=== PATIENT | female | born 2000 | race Caucasian/White ===

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

== ENCOUNTER → 2019-10-21 | Outpatient (REF) | payer BC, OTHER ==
[2019-10-21 12:58] LABS: HEMATOCRIT 34.9 % (36.0-47.0); HEMOGLOBIN 11.7 g/dl (12.0-15.5); MEAN CORPUSCULAR HEMOGLOBIN 29.3 pg (27.0-33.0); MEAN CORPUSCULAR HGB CONC 33.5 g/dl (32.0-36.5); MEAN CORPUSCULAR VOLUME 87.5 fl (80.0-96.0); PLATELET COUNT, AUTOMATED 277 10^3/uL (150-450); RED BLOOD COUNT 3.99 10^6/uL (4.00-5.40); WHITE BLOOD COUNT 8.8 10^3/uL (4.0-10.0)
[2019-10-21 13:20] LABS: HCG, SERUM QUANTITATIVE 50801 MIU/ML
[2019-10-21 13:23] LABS: RUBELLA IgG QUALITATIVE IMMUNE (IMMUNE)
[2019-10-21 13:52] LABS: HEPATITIS C VIRUS ABY INDEX 0.2 INDEX (<0.8)
[2019-10-21 13:53] LABS: HIV 1&2 SCREEN CENTAUR NEGATIVE (NEGATIVE)
== END ==
LOC: M LAB REF 12:21
PROVIDERS: ATTEND Obstetrics & Gynecology
DX: Z32.01 Encounter for pregnancy test, result positive (principal)

== ENCOUNTER → 2019-10-26 | Outpatient (CLI) | payer BC, OTHER ==
--- NOTE | 2019-10-27 04:44 | REP ---
Clinical: Dating and viability. Technique: Transabdominal first trimester obstetrical ultrasound with color Doppler evaluation. Findings: Ultrasound examination demonstrates single live intrauterine . [place] rump length of 7.6 cm corresponds to 13 weeks 4 days gestational age with estimated date of delivery 04/28/2020. heart rate equals 146 beats per minute. Placenta identified posteriorly and without evidence for previa. Cervix measures 3.8 cm in length and appears closed. Impression: Single live intrauterine at 13 weeks 4 days gestational age. Complete anatomical assessment should be performed at 19-20 weeks.
== END ==
LOC: M WHC 13:35
PROVIDERS: ATTEND Obstetrics & Gynecology
DX: O36.80X0 Pregnancy with inconclusive fetal viability, not applicable or unspecified (principal); Z3A.13 13 weeks gestation of pregnancy

== ENCOUNTER → 2019-12-15 | Outpatient (CLI) | payer OTHER ==
--- NOTE | 2019-12-15 17:48 | REP ---
REASON: anatomy. Multiple ultrasonographic images of the gravid uterus show a single living intrauterine gestation in the kiki breech presentation. Doppler interrogation of the heart shows a heart rate of 160 beats per minute. The placenta is posterior fundal and now low lying. The cervix measures 4.2 cm in length and is closed. The subjected amniotic fluid volume is within normal limits. Evaluation of the maternal adnexal spaces showed no abnormalities. BPD 4.9 cm = 20 weeks 6 days HC 18.6 cm = 21 weeks 0 days AC 16.8 cm = 21 weeks 6 days FL 3.5 cm = 21 weeks 0 days The estimated weight is 416 grams, which is at the 66th percentile for a 20 week 5 day gestational age. anatomical structures seen as unremarkable are as follows: Thalami, cavum septum pellucidum, cerebellum, cisterna magna, cerebral ventricles, upper lip, stomach, cord insertion, three-vessel umbilical cord, kidneys, urinary bladder, and both upper and lower extremities. Structures suboptimally visualized are as follows: Four-chamber heart, right and left ventricular outflow tracts, and spine. IMPRESSION: Single living intrauterine gestation, as described above with an estimated gestational age of 20 weeks 6 days via composite criteria and an estimated date of delivery of 04/28/2020, however, the technologist did not indicate whether that ABBI was based on today's exam or based on the first exam. Incomplete anatomical screen, as described above.
== END ==
LOC: M WHC 09:39
PROVIDERS: ATTEND Obstetrics & Gynecology
DX: O32.1XX0 Maternal care for breech presentation, not applicable or unspecified (principal); Z36.89 Encounter for other specified antenatal screening; Z3A.20 20 weeks gestation of pregnancy

== ENCOUNTER → 2020-01-12 | Outpatient (CLI) | payer OTHER ==
--- NOTE | 2020-01-12 09:50 | REP ---
Clinical: Anatomical evaluation. Comparison: 12/15/2019 . Findings: Examination demonstrates a single live intrauterine in variable presentation. motion is identified by technologist. Placenta is noted posterior and grade I without evidence for placenta previa or abruption. Amniotic fluid volume is normal. Cervix measures 3.1 cm in length and appears closed. No evidence for nuchal cord. Gestational age by first US 24 weeks 5 days with ABBI 04/28/2020 . Gestational age by current measurements the 4 weeks 3 days with ABBI 04/30/2020 . FHR equals 136 beats per minute. Estimated weight 717 grams ( 40th percentile). Anatomical assessment demonstrates normal structures including cranium, cerebellum/posterior fossa, facial features, lungs, four-chamber heart/ventricular outflow tracts, diaphragm, stomach, cord insertion/three-vessel cord, kidneys/bladder, spine. Impression: Single live intrauterine in variable presentation demonstrating appropriate interval growth. In conjunction with prior examination anatomical assessment is complete and normal.
== END ==
LOC: M WHC 08:37
PROVIDERS: ATTEND Advanced Practice Midwife
DX: Z34.02 Encounter for supervision of normal first pregnancy, second trimester (principal); Z36.2 Encounter for other antenatal screening follow-up; Z3A.24 24 weeks gestation of pregnancy

== ENCOUNTER 2020-04-18 00:11 | Inpatient (IN) | payer OTHER ==
[~2020-04-18] VITALS: Ht 160 cm; Wt 87.7 kg
[2020-04-18] VITALS (16 sets, daily range): BP systolic 121–149; BP diastolic 66–99
[2020-04-18] MEDS ORDERED: LR 1,000 ML IV SCH (01:08)
[2020-04-18] MEDS ORDERED: LACTATED RINGER'S 1000 ML IV STA (01:08)
[2020-04-18 01:42] LABS: BASO % 0.2 % (0.0-1.0); EOS # 0.1 10^3/uL (0.0-0.5); EOS % 0.6 % (0.0-3.0); HEMATOCRIT 36.4 % (36.0-47.0); HEMOGLOBIN 12.1 g/dl (12.0-15.5); LYMPH % 17.7 % (24.0-44.0); MEAN CORPUSCULAR HEMOGLOBIN 29.7 pg (27.0-33.0); MEAN CORPUSCULAR HGB CONC 33.2 g/dl (32.0-36.5); MEAN CORPUSCULAR VOLUME 89.2 fl (80.0-96.0); MONO # 0.8 10^3/uL (0.0-0.8); MONO % 7.1 % (0.0-5.0); NEUTROPHILS # 8.3 10^3/uL (1.5-8.5); NEUTROPHILS % 73.8 % (36.0-66.0); PLATELET COUNT, AUTOMATED 278 10^3/uL (150-450); RED BLOOD COUNT 4.08 10^6/uL (4.00-5.40); WHITE BLOOD COUNT 11.3 10^3/uL (4.0-10.0)
[2020-04-18] MEDS ORDERED: FENTANYL 2MCG/ML ROPIVACAINE 0.2% IN 0.9% NACL 100ML IVBAG As Ordered ONE (02:32)
[2020-04-18] MEDS ORDERED: OXYTOCIN 30 UNITS IN 0.9% NaCl 500ML IV BAG (J2590) As Ordered ONE (04:27)
[2020-04-18] MEDS ORDERED: METHYLERGONOVINE MALEATE 0.2 MG/ML VIAL (J2210) As Ordered ONE (05:00)
[2020-04-18] MEDS ORDERED: OXYTOCIN DRIP 30 UNITS in IV 1 EA IV SCH (05:10)
[2020-04-18] MEDS ORDERED: MEASLES,MUMPS,RUBELLA VACCINE INJ (MMR-II) (90707) SC SCH (05:15)
[2020-04-18] MEDS ORDERED: METHYLERGONOVINE MALEATE 0.2 MG TAB PO PRN (05:15)
[2020-04-18] MEDS ORDERED: ACETAMINOPHEN 500 MG TAB PO PRN (05:15)
[2020-04-18] MEDS ORDERED: DIBUCAINE 1% OINTMENT 30GM TOP PRN (05:15)
[2020-04-18] MEDS ORDERED: DOCUSATE SODIUM 100 MG CAP PO PRN (05:15)
[2020-04-18] MEDS ORDERED: ACETAMINOPHEN TAB 650MG DOSE (2X325MG) PO PRN (05:15)
[2020-04-18] MEDS ORDERED: IBUPROFEN 800 MG TAB PO PRN (05:15)
[2020-04-18] MEDS ORDERED: RHOGAM 300 MCG (1500 IU) INJ (J2790) IM SCH (05:15)
[2020-04-18 05:20] LABS: CORD GAS ABE A -9.9; CORD GAS HCO3 A 17.9 MEQ/L; CORD GAS O2 SAT A 43.4 %; CORD GAS PCO2 A 46.4 mmHg; CORD GAS PH A 7.205 UNITS; CORD GAS PO2 A 22.5 mmHg; CORD GAS SBC A 15.6 MEQ/L; CORD GAS TCO2 A 19.4 MEQ/L
[2020-04-18 05:23] LABS: CORD GAS ABE V -7.5; CORD GAS HCO3 V 18.7 MEQ/L; CORD GAS O2 SAT V 48.2 %; CORD GAS PCO2 V 40.5 mmHg; CORD GAS PH V 7.283 UNITS; CORD GAS SBC V 17.4 MEQ/L
[2020-04-18] MEDS: PRENATAL VITAMINS CHEWABLE TABLET PO SCH (07:56)
[2020-04-18] MEDS: IBUPROFEN 600MG TAB PO PRN (07:57)
[2020-04-19 06:56] VITALS: BP 123/71
[2020-04-19] MEDS ORDERED: INFLUENZA QUADRIVALENT PF VACCINE 0.5ML SYRINGE IM ONE (09:00)
[2020-04-19] MEDS ORDERED: BOOSTRIX/ADACEL VACCINE (DIPHTH/PERTUSS/ACELL/TETANUS) 0.5ML SYR IM ONE (09:00)
--- NOTE | 2020-04-19 09:31 | HPE ---
DATE OF ADMISSION: 04/18/2020 Milla is a 20-year-old female, 1, para 0, with an estimated date of confinement (EDC) of 04/28/2020, estimated gestational age (EGA) 38-2/7 weeks gestation, who presented to labor and delivery with complaints of contractions every 2-3 minutes. Upon evaluation she was found to be in labor at 3 cm dilated. At this point a decision was made to admit the patient. She denies any bleeding or rupture of membranes. She is comfortable. Has been having contractions for over 2-3 hours. Her record reviewed. Blood type is A positive, rubella immune, hepatitis negative, HIV negative, GC/chlamydia negative. One-hour sugar testing was within normal limits. Her GBS is negative. PAST MEDICAL HISTORY: Denies. PAST SURGICAL HISTORY: Denies. SOCIAL HISTORY: Denies any alcohol, drugs, or cigarette smoking. REVIEW OF SYSTEMS: Unremarkable. MEDICATIONS: vitamins. ALLERGIES: No known drug allergies. PHYSICAL EXAMINATION: Normal-appearing female in no acute distress. Abdomen: Soft, nontender, nondistended. Extremities: No clubbing, cyanosis, or edema. Vaginal exam done by RN: Cervix is 3 cm dilated, 75% effaced. Tracing reviewed. Category 1 tracing. ASSESSMENT: Intrauterine at 38-5/7 weeks gestation in active labor. PLAN: Admit to labor and delivery. Routine labs sent. Pain management discussed. Patient opts for an epidural. We will continue to monitor. Anticipate delivery. SAMMIE
--- NOTE | 2020-04-19 09:33 | DN ---
DATE OF DELIVERY: 04/18/2020. DESCRIPTION OF DELIVERY: Milla is a 20-year-old female, 1, para 0, who was admitted at 38 and 5/7 weeks gestation in active labor. She progressed to fully dilated and delivered a live female from the left occiput anterior position, Apgars 8 and 9, weight 5 pounds 12 ounces. Placenta delivered spontaneously intact, three vessel cord. Perineum, vagina, cervix were inspected, no laceration noted. Estimated blood loss 350 cc. 0.2 mg of Methergine I.M. given to help with hemostasis. Both mother and baby in stable condition. MTDD
[2020-04-19] MEDS: PRENATAL VITAMINS CHEWABLE TABLET PO SCH (10:13)
[2020-04-19] MEDS: IBUPROFEN 600MG TAB PO PRN (10:14)
[2020-04-19 17:45] VITALS: BP 129/72
[2020-04-20 05:43] VITALS: BP 131/70
[2020-04-20] MEDS ORDERED: INFLUENZA QUADRIVALENT PF VACCINE 0.5ML SYRINGE IM ONE (09:00)
[2020-04-20] MEDS ORDERED: BOOSTRIX/ADACEL VACCINE (DIPHTH/PERTUSS/ACELL/TETANUS) 0.5ML SYR IM ONE (09:00)
[2020-04-20] MEDS: PRENATAL VITAMINS CHEWABLE TABLET PO SCH (10:25)
== END 2020-04-20 13:40 | disposition home or self-care (01) | DRG 560 ==
LOC: M LDO 00:11 → M LDI 01:03 → M OBS 06:17
PROVIDERS: ADMIT Obstetrics & Gynecology; ATTEND Obstetrics & Gynecology
PROC: 10E0XZZ Delivery of Products of Conception, External Approach (ICD-10-PCS; principal; 2020-04-18)
DX: O80 Encounter for full-term uncomplicated delivery (principal); Z3A.38 38 weeks gestation of pregnancy; Z37.0 Single live birth

== ENCOUNTER → 2023-12-04 | Outpatient (CLI) | payer OTHER | LOC: M PLAIMG 07:10 | PROVIDERS: ATTEND Student in an Organized Health Care Education/Training Program | DX: M25.532 Pain in left wrist (principal); M67.432 Ganglion, left wrist ==

== ENCOUNTER → 2024-06-23 | Outpatient (REF) | payer OTHER ==
[2024-06-23 14:21] LABS: HEMATOCRIT 30.4 % (36.0-47.0); HEMOGLOBIN 10.5 g/dl (12.0-15.5); MEAN CORPUSCULAR HEMOGLOBIN 29.5 pg (27.0-33.0); MEAN CORPUSCULAR HGB CONC 34.5 g/dl (32.0-36.5); MEAN CORPUSCULAR VOLUME 85.4 fl (80.0-96.0); PLATELET COUNT, AUTOMATED 258 10^3/uL (150-450); RED BLOOD COUNT 3.56 10^6/uL (4.00-5.40); WHITE BLOOD COUNT 5.2 10^3/uL (4.0-10.0)
[2024-06-23 14:43] LABS: HEPATITIS B SURFACE ANTIGEN NEGATIVE (NEGATIVE)
[2024-06-23 14:55] LABS: HIV 1&2 SCREEN NEGATIVE (NEGATIVE)
[2024-06-23 15:04] LABS: HEPATITIS C VIRUS ABY INDEX 0.12 INDEX (<0.8)
[2024-06-24 09:20] LABS: HCG, SERUM QUANTITATIVE 1741.2 MIU/ML (<4.2)
== END ==
LOC: M LAB REF 13:39
PROVIDERS: ATTEND Advanced Practice Midwife
DX: Z32.01 Encounter for pregnancy test, result positive (principal); O36.80X0 Pregnancy with inconclusive fetal viability, not applicable or unspecified; Z3A.00 Weeks of gestation of pregnancy not specified

== ENCOUNTER 2024-06-29 19:13 | Emergency (ER) | payer OTHER ==
[~2024-06-29] VITALS: Ht 160 cm; Wt 55.7 kg
[2024-06-29 19:17] VITALS: TEMP 98
[2024-06-29 20:46] LABS: BASO % 0.3 % (0.0-1.0); EOS # 0.1 10^3/uL (0.0-0.5); EOS % 0.9 % (0.0-3.0); HEMATOCRIT 34.6 % (36.0-47.0); HEMOGLOBIN 11.8 g/dl (12.0-15.5); LYMPH # 1.7 10^3/uL (1.5-5.0); MEAN CORPUSCULAR HEMOGLOBIN 29.3 pg (27.0-33.0); MEAN CORPUSCULAR HGB CONC 34.1 g/dl (32.0-36.5); MEAN CORPUSCULAR VOLUME 85.9 fl (80.0-96.0); MONO # 0.5 10^3/uL (0.0-0.8); MONO % 8.2 % (2.0-8.0); NEUTROPHILS # 4.2 10^3/uL (1.5-8.5); NEUTROPHILS % 64.3 % (36.0-66.0); PLATELET COUNT, AUTOMATED 328 10^3/uL (150-450); RED BLOOD COUNT 4.03 10^6/uL (4.00-5.40); WHITE BLOOD COUNT 6.6 10^3/uL (4.0-10.0)
[2024-06-29 21:13] LABS: BLOOD UREA NITROGEN 7 MG/DL (9-23); CALCIUM LEVEL 9.4 MG/DL (8.5-10.1); CARBON DIOXIDE LEVEL 22 MMOL/L (20-31); CHLORIDE LEVEL 111 MMOL/L (98-107); CREATININE FOR GFR 0.57 MG/DL (0.55-1.30); GLOMERULAR FILTRATION RATE > 60.0 (>60); GLUCOSE, FASTING 87 MG/DL (60-100); POTASSIUM SERUM 3.7 MMOL/L (3.5-5.1); SODIUM LEVEL 143 MMOL/L (136-145)
[2024-06-29] MEDS ORDERED: METHOTREXATE 50MG/2ML VIAL IM STA (23:23)
[2024-06-29] MEDS ORDERED: ONDA-282 PO (23:35)
[2024-06-30] MEDS: METHOTREXATE 50MG/2ML VIAL IM STA (01:48)
[2024-06-30 01:58] VITALS: BP 112/67; O2SAT 100
== END 2024-06-30 01:59 | disposition home or self-care (01) ==
LOC: M ED 19:13
DX: O03.9 Complete or unspecified spontaneous abortion without complication (principal); N93.9 Abnormal uterine and vaginal bleeding, unspecified; Z3A.01 Less than 8 weeks gestation of pregnancy; Z79.899 Other long term (current) drug therapy
CPT/HCPCS: 76801; 76817; 80048; 84702; 85025; 86850; 86900; 86901; 96372; 99283; J9260

== ENCOUNTER → 2024-07-10 | Outpatient (CLI) | payer OTHER ==
[~2024-07-10] MED LIST: ONDA-282 PO
== END ==
LOC: M LAB 14:16
PROVIDERS: ATTEND Obstetrics & Gynecology
DX: O36.80X0 Pregnancy with inconclusive fetal viability, not applicable or unspecified (principal)

== ENCOUNTER → 2024-07-18 | Outpatient (REF) | payer OTHER, MEDICAID | LOC: M LAB REF 12:08 | PROVIDERS: ATTEND Obstetrics & Gynecology | DX: O02.1 Missed abortion (principal) ==

== ENCOUNTER → 2024-10-13 | Outpatient (REF) | payer OTHER | LOC: M LAB REF 17:28 | PROVIDERS: ATTEND Obstetrics & Gynecology | DX: O36.80X0 Pregnancy with inconclusive fetal viability, not applicable or unspecified (principal) ==

== ENCOUNTER → 2024-10-18 | Outpatient (REF) | payer OTHER, MEDICAID | LOC: M LAB REF 17:35 | PROVIDERS: ATTEND Obstetrics & Gynecology | DX: O36.80X0 Pregnancy with inconclusive fetal viability, not applicable or unspecified (principal); Z3A.00 Weeks of gestation of pregnancy not specified ==